=== PATIENT | female | born 1985 | race African-American/Black ===

== ENCOUNTER 2019-01-26 19:01 | Emergency (ER) | payer OTHER ==
[~2019-01-26] VITALS: Ht 154.9 cm; Wt 81.7 kg
[2019-01-26] MEDS ORDERED: VENTOLIN HFA 1818 GM INH (19:06)
[2019-01-26 19:24] LABS: ABSOLUTE BASOPHILS 0.1 thou/uL (0.0-0.2); ABSOLUTE EOSINOPHILS 0.2 thou/uL (0.0-0.7); ABSOLUTE LYMPHOCYTES 3.2 thou/uL (0.8-5.3); ABSOLUTE MONOCYTES 0.6 thou/uL (0.0-1.2); ABSOLUTE NEUTROPHILS 4.2 thou/uL (1.6-8.1); BASOPHILS 0.9 %; EOSINOPHILS 2.8 %; HEMATOCRIT 39.4 % (37.0-47.0); HEMOGLOBIN 12.4 gm/dL (12.0-15.0); LYMPHOCYTES 38.5 %; MCH 23.3 pg (26.0-34.0); MCHC 31.6 g/dL (28.0-37.0); MONOCYTES 6.8 %; MPV 7.4 fl. (7.2-11.1); NUCLEATED RBCS 0 /100WBC; PLATELET COUNT* 373 thou/uL (150-400); RBC 5.33 mil/uL (4.20-5.00); RDW-CV 14.8 % (10.5-14.5); WBC 8.2 thou/uL (4.0-11.0)
[2019-01-26 19:32] LABS: APTT 27.2 Seconds (25.0-31.3); PROTIME 10.6 Seconds (9.20-11.50)
[2019-01-26 19:36] LABS: ANION GAP 9 mmol/L (7-16); BUN 7 mg/dL (7-18); CALCIUM 8.8 mg/dL (8.5-10.1); CHLORIDE 107 mmol/L (98-107); CO2 26 mmol/L (21-32); CREATININE 0.9 mg/dL (0.6-1.3); GLUCOSE 109 mg/dL (70-99); POTASSIUM 3.7 mmol/L (3.5-5.1); SODIUM 142 mmol/L (136-145)
[2019-01-26 19:46] LABS: ALBUMIN 3.6 g/dL (3.4-5.0); ALKALINE PHOSPHATASE 74 U/L (46-116); SGOT 12 U/L (15-37); SGPT 20 U/L (30-65); TOTAL BILIRUBIN 0.3 mg/dL (<0.1-1.0); TROPONIN-I LEVEL <0.06 ng/mL (<0.06)
[2019-01-26] MEDS ORDERED: OMEPRAZOLE 20 M20 M1 PO (20:25)
[2019-01-26 20:36] VITALS: BP 126/74
--- NOTE | 2019-01-27 13:18 | EKG ---
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
== END 2019-01-26 20:37 | disposition home or self-care (01) ==
LOC: M.ERS 19:01
PROVIDERS: Nurse Practitioner Psychiatric/Mental Health
DX: K21.9 Gastro-esophageal reflux disease without esophagitis (principal); J45.909 Unspecified asthma, uncomplicated; F41.9 Anxiety disorder, unspecified; Z88.8 Allergy status to other drugs, medicaments and biological substances

== ENCOUNTER 2019-03-21 18:33 | Emergency (ER) | payer OTHER ==
[~2019-03-21] VITALS: Ht 160 cm; Wt 83.9 kg
[~2019-03-21 18:33] MED LIST: OMEPRAZOLE 20 M20 M1 PO; VENTOLIN HFA 1818 GM INH
[2019-03-21 19:02] LABS: ABSOLUTE BASOPHILS 0.1 thou/uL (0.0-0.2); ABSOLUTE EOSINOPHILS 0.3 thou/uL (0.0-0.7); ABSOLUTE LYMPHOCYTES 3.8 thou/uL (0.8-5.3); ABSOLUTE MONOCYTES 0.7 thou/uL (0.0-1.2); ABSOLUTE NEUTROPHILS 6.3 thou/uL (1.6-8.1); BASOPHILS 0.9 %; EOSINOPHILS 2.8 %; HEMATOCRIT 37.8 % (37.0-47.0); HEMOGLOBIN 11.9 gm/dL (12.0-15.0); LYMPHOCYTES 33.8 %; MCH 22.9 pg (26.0-34.0); MCHC 31.4 g/dL (28.0-37.0); MCV 72.9 fL (80.0-100.0); MONOCYTES 6.3 %; MPV 7.8 fl. (7.2-11.1); NUCLEATED RBCS 0 /100WBC; PLATELET COUNT* 339 thou/uL (150-400); POLYS 56.2 %; RBC 5.17 mil/uL (4.20-5.00); RDW-CV 14.7 % (10.5-14.5); WBC 11.2 thou/uL (4.0-11.0)
[2019-03-21 19:06] LABS: ANION GAP 11 mmol/L (7-16); BUN 7 mg/dL (7-18); CALCIUM 8.7 mg/dL (8.5-10.1); CHLORIDE 106 mmol/L (98-107); CO2 24 mmol/L (21-32); CREATININE 0.8 mg/dL (0.6-1.3); GLUCOSE 104 mg/dL (70-99); POTASSIUM 3.5 mmol/L (3.5-5.1); SODIUM 141 mmol/L (136-145)
[2019-03-21 19:17] LABS: ALBUMIN 3.5 g/dL (3.4-5.0); ALKALINE PHOSPHATASE 68 U/L (46-116); LIPASE 104 U/L (73-393); MAGNESIUM 1.8 mg/dL (1.8-2.4); NT-PRO BRAIN NAT PEPTIDE 31 pg/mL (<300); SGOT 11 U/L (15-37); SGPT 22 U/L (30-65); TOTAL BILIRUBIN 0.3 mg/dL (<0.1-1.0); TOTAL PROTEIN 6.8 g/dL (6.4-8.2); TROPONIN-I LEVEL <0.06 ng/mL (<0.06)
[2019-03-21 19:21] LABS: PLATELET ESTIMATE ADEQUATE
[2019-03-21 19:22] LABS: HYPOCHROMASIA 1+; MICROCYTES 1+
[2019-03-21] MEDS ORDERED: PRILOSEC OTC20 MG PO (20:34)
[2019-03-21] MEDS ORDERED: PROAIR HFA8.5 GM INH (20:34)
[2019-03-21 20:45] VITALS: BP 112/68
--- NOTE | 2019-03-22 12:31 | EKG ---
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 03/22/19 1231 1841 1841 Goldy Berry MD, FACC /EPI
== END 2019-03-21 20:45 | disposition home or self-care (01) ==
LOC: M.ERS 18:33
PROVIDERS: Emergency Medicine Emergency Medical Services
DX: K21.9 Gastro-esophageal reflux disease without esophagitis (principal); J45.909 Unspecified asthma, uncomplicated; F17.210 Nicotine dependence, cigarettes, uncomplicated; F41.9 Anxiety disorder, unspecified; Z88.8 Allergy status to other drugs, medicaments and biological substances

== ENCOUNTER 2019-04-05 17:49 | Emergency (ER) | payer OTHER ==
[~2019-04-05] VITALS: Ht 154.9 cm; Wt 83.9 kg
[~2019-04-05 17:49] MED LIST changes: +PRILOSEC OTC20 MG PO; +PROAIR HFA8.5 GM INH
[2019-04-05 18:24] LABS: ABSOLUTE BASOPHILS 0.1 thou/uL (0.0-0.2); ABSOLUTE EOSINOPHILS 0.4 thou/uL (0.0-0.7); ABSOLUTE LYMPHOCYTES 2.8 thou/uL (0.8-5.3); ABSOLUTE MONOCYTES 0.7 thou/uL (0.0-1.2); ABSOLUTE NEUTROPHILS 5.6 thou/uL (1.6-8.1); BASOPHILS 0.9 %; HEMATOCRIT 39.7 % (37.0-47.0); HEMOGLOBIN 12.5 gm/dL (12.0-15.0); LYMPHOCYTES 29.2 %; MCHC 31.4 g/dL (28.0-37.0); MCV 73.3 fL (80.0-100.0); MONOCYTES 7.3 %; MPV 7.4 fl. (7.2-11.1); NUCLEATED RBCS 0 /100WBC; PLATELET COUNT* 386 thou/uL (150-400); POLYS 58.6 %; RBC 5.42 mil/uL (4.20-5.00); RDW-CV 14.8 % (10.5-14.5); WBC 9.6 thou/uL (4.0-11.0)
[2019-04-05 18:32] LABS: ANION GAP 9 mmol/L (7-16); BUN 8 mg/dL (7-18); CHLORIDE 105 mmol/L (98-107); CO2 26 mmol/L (21-32); CREATININE 0.8 mg/dL (0.6-1.3); GLUCOSE 102 mg/dL (70-99); POTASSIUM 3.6 mmol/L (3.5-5.1); SODIUM 140 mmol/L (136-145)
[2019-04-05 18:34] LABS: PROTIME 10.6 Seconds (9.20-11.50)
[2019-04-05 18:41] LABS: ALBUMIN 3.5 g/dL (3.4-5.0); ALKALINE PHOSPHATASE 76 U/L (46-116); LIPASE 88 U/L (73-393); SGOT 9 U/L (15-37); SGPT 21 U/L (30-65); TOTAL BILIRUBIN 0.3 mg/dL (<0.1-1.0); TROPONIN-I LEVEL <0.06 ng/mL (<0.06)
[2019-04-05 21:46] VITALS: BP 117/54
--- NOTE | 2019-04-06 18:31 | EKG ---
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 04/06/19 1831 07 07 Igor Thapa MD, FACC /EPI
--- NOTE | 2019-04-06 18:31 | EKG ---
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
== END 2019-04-05 21:45 | disposition home or self-care (01) ==
LOC: M.ERS 17:49
PROVIDERS: Personal Emergency Response Attendant
DX: R07.2 Precordial pain (principal); F17.210 Nicotine dependence, cigarettes, uncomplicated; J45.909 Unspecified asthma, uncomplicated; F41.9 Anxiety disorder, unspecified; K21.9 Gastro-esophageal reflux disease without esophagitis; Z88.8 Allergy status to other drugs, medicaments and biological substances

== ENCOUNTER 2019-05-04 13:44 | Emergency (ER) | payer OTHER ==
[~2019-05-04] VITALS: Ht 167.6 cm; Wt 93.0 kg
[2019-05-04 14:45] LABS: URINE BILIRUBIN NEGATIVE (Negative); URINE BLOOD 1+ (Negative); URINE CLARITY CLEAR; URINE COLOR YELLOW; URINE GLUCOSE-RANDOM NEGATIVE (Negative); URINE KETONES NEGATIVE (Negative); URINE LEUKOCYTES-REFLEX TRACE (Negative); URINE NITRITE-REFLEX NEGATIVE (Negative); URINE PROTEIN NEGATIVE (Negative); URINE UROBILINOGEN 0.2 E.U./dl (0.2-1.0)
[2019-05-04 15:12] LABS: CASTS None Seen /LPF (None Seen); CRYSTALS None Seen /LPF (None Seen); SQUAMOUS 0-3 Few /LPF (0-3); URINE RBC None Seen /HPF (0-2); URINE WBC-REFLEX 6-15 Few /HPF (0-5)
[2019-05-04] MEDS ORDERED: KEFLEX500 M1 PO (15:19)
[2019-05-04] MEDS ORDERED: ONDANSETRON HCL4 M2 PO (15:19)
[2019-05-04] MEDS ORDERED: MEDROLDOSEPACK PO (15:27)
[2019-05-04] MEDS ORDERED: CLARITIN10 MG PO (15:27)
[2019-05-04 15:42] VITALS: BP 108/57
== END 2019-05-04 15:42 | disposition home or self-care (01) ==
LOC: M.ERS 13:44
PROVIDERS: Physician Assistant
DX: N39.0 Urinary tract infection, site not specified (principal); J06.9 Acute upper respiratory infection, unspecified; J45.909 Unspecified asthma, uncomplicated; F41.9 Anxiety disorder, unspecified; K21.9 Gastro-esophageal reflux disease without esophagitis; F17.210 Nicotine dependence, cigarettes, uncomplicated; Z88.8 Allergy status to other drugs, medicaments and biological substances

== ENCOUNTER 2019-05-13 21:27 | Emergency (ER) | payer OTHER ==
[~2019-05-13] VITALS: Ht 167.6 cm; Wt 93.0 kg
[~2019-05-13 21:27] MED LIST changes: +CLARITIN10 MG PO; +KEFLEX500 M1 PO; +MEDROLDOSEPACK PO; +ONDANSETRON HCL4 M2 PO
[2019-05-13] MEDS ORDERED: CARAFATE 1 GM TA1 GM PO (22:27)
[2019-05-13 23:00] VITALS: BP 116/60
--- NOTE | 2019-05-14 10:49 | EKG ---
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: [id number] : 1985 Requested By: Rhianna Jurado Order Number: [id number] MD: Goldy Berry Measurements Intervals [place] Rate: 77 P: 7 [place]: 149 QRS: 52 QRSD: 100 T: 22 QT: 381 QTc: 432 Interpretive Statements Sinus rhythm Borderline T abnormalities, anterior leads Compared to ECG 04/05/2019 20:08:58 T-wave abnormality now present Electronically Signed On 05-14-2019 10:48:49 CDT by Goldy Berry [email or web address] <ELECTRONICALLY SIGNED> By: Goldy Berry MD, [facility] 05/14/19 1048 33 33 Goldy Berry MD, FACC /EPI
== END 2019-05-13 23:00 | disposition home or self-care (01) ==
LOC: M.ERS 21:27
DX: R12 Heartburn (principal); J45.909 Unspecified asthma, uncomplicated; F41.9 Anxiety disorder, unspecified; K21.9 Gastro-esophageal reflux disease without esophagitis; Z87.891 Personal history of nicotine dependence; Z88.8 Allergy status to other drugs, medicaments and biological substances